=== PATIENT | female | born 1990 | race Hispanic/Latino ===

== ENCOUNTER 2017-06-03 10:46 | Emergency (ER) | payer OTHER ==
[2017-06-03 11:09] LABS: #Basophils 0.1 thou/uL (0.0-0.2); #Eosinphils 0.1 thou/uL (0.0-0.7); #Lymphocytes 1.6 thou/uL (1.20-3.40); #Monocytes 0.5 thou/uL (0.11-0.59); #Neutrophils 5.3 thou/uL (1.40-6.50); %Basophils 0.9 % (0.0-1.0); %Eosinophils 0.9 % (0.0-10.0); %Lymphocytes 20.7 % (21.0-51.0); %Monocytes 6.6 % (0.0-10.0); %Neutrophils 70.9 % (42.0-75.0); Hemoglobin 12.1 g/dL (12.0-16.0); Mean Corpuscular HGB CONC 31.5 g/dL (32.0-36.0); Mean Corpuscular Hemoglobin 26.7 pg (27.0-31.0); Mean Corpuscular Volume 84.6 fl (81.0-99.0); Mean Platelet Volume 8.5 fL (7.4-10.4); Platelet Count 319 thou/uL (130-400); RBC Distribution Width 16.4 % (11.5-14.5); Red Blood Cell (RBC) Count 4.54 mill/uL (4.20-5.40); White Blood Cell (WBC) Count 7.5 thou/uL (4.8-10.8)
[2017-06-03 11:17] LABS: BHCG - Serum Negative (NEGATIVE); Pregs Control Background? CLEAR/WHITE (CLR/WHITE); Pregs Control Bar Appear? YES (CONTROL BAR)
--- NOTE | 2017-06-03 14:41 | ULT ---
PELVIC ULTRASOUND: Date: 06/03/17 COMPARISON: None. HISTORY: Vaginal bleeding, possible . TECHNIQUE: Multiplanar Tee scale sonographic imaging of the pelvis obtained with transabdominal and endovaginal imaging. Ovaries are assessed with color flow and spectral analysis. FINDINGS: The provided history includes probable . However, the potential gestational age is unclear a nd no laboratory assessment has been performed with regard to quantitative beta HCG. The uterus measures 8.8 x 6.4 x 6.2 cm and demonstrates an endometrial stripe measuring 9.0 mm. No in trauterine gestational sac is identified. No free fluid is seen in the pelvis. Left ovary measures 2.8 x 4.2 x 2.8 cm and demonstrates blood flow. Right ovary measures 2.5 x 3.2 x 2.1 cm and demonstrates blood flow. No ovarian or adnexal mass identified. IMPRESSION: Unremarkable pelvic ultrasound. No evidence for intrauterine gestational sac. Quantitative beta HCG correlation is advised. If the patient is in fact , constellation of th e findings could be on the basis of normal early , spontaneous , or sonographically occult ectopic . POS: [facility]
== END 2017-06-03 13:34 | disposition home or self-care (01) ==
LOC: EEVIPCON 10:46 → L&D/OP 10:46 → ERS 10:46 → EDSTATUS 11:09 → ERS 13:34
DX: O46.92 Antepartum hemorrhage, unspecified, second trimester (principal); O99.342 Other mental disorders complicating pregnancy, second trimester; F31.9 Bipolar disorder, unspecified; Z3A.20 20 weeks gestation of pregnancy
CPT/HCPCS: 36415; 76856; 84702; 84703; 85025; 86900; 86901

== ENCOUNTER 2017-11-02 15:45 | Emergency (ER) | payer OTHER ==
[2017-11-02 17:02] LABS: #Basophils 0.1 thou/uL (0.0-0.2); #Eosinphils 0.1 thou/uL (0.0-0.7); #Lymphocytes 1.7 thou/uL (1.20-3.40); #Monocytes 0.5 thou/uL (0.11-0.59); #Neutrophils 5.8 thou/uL (1.40-6.50); %Basophils 0.9 % (0.0-1.0); %Eosinophils 1.2 % (0.0-10.0); %Lymphocytes 20.3 % (21.0-51.0); %Monocytes 6.1 % (0.0-10.0); %Neutrophils 71.5 % (42.0-75.0); Hemoglobin 11.9 g/dL (12.0-16.0); Mean Platelet Volume 9.1 fL (7.4-10.4); Platelet Count 311 thou/uL (130-400); RBC Distribution Width 15.7 % (11.5-14.5); Red Blood Cell (RBC) Count 4.43 mill/uL (4.20-5.40); White Blood Cell (WBC) Count 8.1 thou/uL (4.8-10.8)
[2017-11-02 17:21] LABS: ALT (SGPT) 12 U/L (8-55); AST (SGOT) 13 U/L (5-34); Albumin 4.5 g/dL (3.5-5.0); Alkaline Phosphatase 94 U/L (40-150); Anion Gap 14 mmol/L (10-20); BUN (Urea Nitrogen) 11 mg/dL (7.0-18.7); Bilirubin, Total 0.5 mg/dL (0.2-1.2); Calc. Creatinine Clearance 0 mL/min (70-130); Calcium 9.4 mg/dL (7.8-10.44); Carbon Dioxide 20 mmol/L (22-29); Chloride 107 mmol/L (98-107); Estimated GFR-MDRD Greater than 90; Globulin 4.3 g/dL (2.4-3.5); Glucose 89 mg/dL (70-105); Potassium 4.2 mmol/L (3.5-5.1); Protein, Total 8.8 g/dL (6.0-8.3); Sodium 137 mmol/L (136-145)
== END 2017-11-02 19:17 | disposition home or self-care (01) ==
LOC: ERS 15:45 → EEVIPCON 15:45 → ERS 19:17
DX: R42 Dizziness and giddiness (principal); D50.0 Iron deficiency anemia secondary to blood loss (chronic); F31.9 Bipolar disorder, unspecified
CPT/HCPCS: 36415; 80053; 85025; 86850; 86900; 86901; 93005

== ENCOUNTER 2021-09-20 19:45 | Emergency (ER) | payer OTHER ==
[2021-09-20] MEDS ORDERED: Albuterol 200 PUFF (6.7GM INHALER) ONE (20:48)
[2021-09-20] MEDS ORDERED: Acetaminophen 500 MG TAB ONE (21:25)
== END 2021-09-20 22:15 | disposition home or self-care (01) ==
LOC: ERS 19:45
DX: J45.901 Unspecified asthma with (acute) exacerbation (principal); B34.9 Viral infection, unspecified; D64.9 Anemia, unspecified
CPT/HCPCS: 71045; 99285

== ENCOUNTER 2023-01-26 18:41 | Emergency (ER) | payer OTHER, SELFPAY ==
[2023-01-26] MEDS ORDERED: Acetaminophen 500 MG TAB ONE (20:04)
[2023-01-26] MEDS ORDERED: diphenhydrAMINE 50 MG/ML VIAL ONE (20:05)
[2023-01-26] MEDS ORDERED: Metoclopramide HCl 10 MG/2 ML VIAL ONE (20:05)
== END 2023-01-26 21:30 | disposition home or self-care (01) ==
LOC: ERS 18:41
DX: S09.90XA Unspecified injury of head, initial encounter (principal); W01.10XA Fall on same level from slipping, tripping and stumbling with subsequent striking against unspecified object, initial encounter
CPT/HCPCS: 70450; 96365; 96375; J1200; J2765

== ENCOUNTER 2023-07-18 16:00 | Emergency (ER) | payer SELFPAY ==
[2023-07-18] MEDS ORDERED: Ketorolac Tromethamine 30 MG (1 mL) VIAL ONE (16:40)
== END 2023-07-18 17:15 | disposition home or self-care (01) ==
LOC: ERS 16:00
DX: S93.601A Unspecified sprain of right foot, initial encounter (principal); M72.2 Plantar fascial fibromatosis; X50.1XXA Overexertion from prolonged static or awkward postures, initial encounter; Y99.0 Civilian activity done for income or pay
CPT/HCPCS: 96372; J1885

== ENCOUNTER 2023-10-31 09:33 | Emergency (ER) | payer SELFPAY ==
[2023-10-31] MEDS ORDERED: Dexamethasone 10 MG/ML VIAL ONE (10:56)
[2023-10-31 10:58] LABS: Influenza A by NAA Not Detected (NotDetected); Influenza B by NAA Not Detected (NotDetected); SARS-CoV-2 NAA Rapid Test Not Detected (NotDetected)
== END 2023-10-31 11:25 | disposition home or self-care (01) ==
LOC: ERS 09:33
DX: J18.9 Pneumonia, unspecified organism (principal); Z59.01 Sheltered homelessness
CPT/HCPCS: 71045; J1100

== ENCOUNTER 2023-11-05 13:57 | Emergency (ER) | payer SELFPAY | END 2023-11-05 19:42 | disposition left against medical advice (07) | LOC: ERS 13:57 | DX: Z53.21 Procedure and treatment not carried out due to patient leaving prior to being seen by health care provider (principal) ==